=== PATIENT | male | born 1995 | race Caucasian/White ===

== ENCOUNTER 2017-08-12 20:26 | Emergency (ER) | payer MEDICAID ==
[~2017-08-12] VITALS: Ht 152.4 cm; Wt 54.5 kg
[2017-08-12 22:24] VITALS: BP 127/73
== END 2017-08-12 22:26 | disposition home or self-care (01) ==
LOC: EMS 20:27
DX: F91.2 Conduct disorder, adolescent-onset type (principal); Z88.0 Allergy status to penicillin
CPT/HCPCS: 99284

== ENCOUNTER 2017-08-13 00:08 | Emergency (ER) | payer MEDICAID ==
[~2017-08-13] VITALS: Ht 154.9 cm; Wt 61.4 kg
[2017-08-13 01:30] VITALS: BP 126/79
== END 2017-08-13 01:33 | disposition home or self-care (01) ==
LOC: EMS 00:09
DX: F91.2 Conduct disorder, adolescent-onset type (principal); H91.90 Unspecified hearing loss, unspecified ear; Z88.0 Allergy status to penicillin
CPT/HCPCS: 99285

== ENCOUNTER 2017-09-10 19:25 | Emergency (ER) | payer MEDICAID ==
[~2017-09-10] VITALS: Ht 165.1 cm; Wt 59.0 kg
[2017-09-10 20:16] VITALS: BP 145/91
== END 2017-09-10 20:46 | disposition home or self-care (01) ==
LOC: EMS 19:32
DX: R06.02 Shortness of breath (principal); Z88.0 Allergy status to penicillin
CPT/HCPCS: 99283

== ENCOUNTER 2017-11-11 20:01 | Emergency (ER) | payer MEDICAID ==
[~2017-11-11] VITALS: Ht 165.1 cm; Wt 59.0 kg
[2017-11-11 20:11] VITALS: BP 135/81
== END 2017-11-12 | disposition left against medical advice (07) ==
LOC: EMS 20:02
DX: F41.9 Anxiety disorder, unspecified (principal); Z53.21 Procedure and treatment not carried out due to patient leaving prior to being seen by health care provider

== ENCOUNTER 2018-04-06 21:12 | Emergency (ER) | payer MEDICAID ==
[~2018-04-06] VITALS: Ht 162.6 cm; Wt 80.0 kg
[2018-04-06] MEDS ORDERED: LISI-622 PO (21:55)
[2018-04-06] MEDS ORDERED: FLUO-126 PO (21:55)
[2018-04-07 00:47] VITALS: BP 119/73
== END 2018-04-07 00:50 | disposition home or self-care (01) ==
LOC: EMS 21:13
DX: F41.9 Anxiety disorder, unspecified (principal); M79.641 Pain in right hand; M79.642 Pain in left hand; Z88.0 Allergy status to penicillin; Z79.899 Other long term (current) drug therapy
CPT/HCPCS: 99283